=== PATIENT | female | born 1970 | race Caucasian/White ===

== ENCOUNTER 2019-05-22 15:30 | Emergency (ER) | payer SELFPAY ==
--- NOTE | 2019-05-22 15:59 | ER Document Report ---
HPI - HPI Patient complains to provider of: right breast abscess Time Seen by Provider: 05/22/19 15:48 Onset: Other - 4 days Quality of pain: Achy Context: 49-year-old female presents with complaints of right breast abscess. Reports she had a breast abscess approximately 1-1/2 years ago. She reports it was drained in [place]. She reports 4 days ago she started having some breast irritation tenderness. She reports her breast started turning red last night. She did soak the breast, put warm compresses on the breast and no relief of symptoms. She denies nipple drainage. No c/o fever, vomiting, diarrhea. She reports she does not have a primary care provider and does not have insurance. Past Medical History - General Information source: Patient - Social History Smoking Status: Current Every Day Smoker Cigarette use (# per day): Yes Frequency of alcohol use: None Drug Abuse: None Family History: None Patient has suicidal ideation: No Patient has homicidal ideation: No Pulmonary Medical History: Reports: Other - emphysema Past Surgical History: Reports: Other - right breast abscess drained Vertical Provider Document - CONSTITUTIONAL Agree With Documented VS: Yes Exam Limitations: No Limitations General Appearance: WD/WN, No Apparent Distress - HEENT HEENT: Atraumatic, Normocephalic - NECK Neck: Supple - RESPIRATORY Respiratory: No Respiratory Distress - CARDIOVASCULAR Cardiovascular: Regular Rate - MUSCULOSKELETAL/EXTREMETIES Musculoskeletal/Extremeties: MAEW, FROM - NEURO Level of Consciousness: Awake, Alert, Appropriate Motor/Sensory: No Motor Deficit - DERM Integumentary: Warm, Dry, Abscess Adult Front & Back Diagram: 1 - Patient complains of right breast pain. Reports it feels like an abscess that she had 11/2 years ago. No obvious abscess noted no erythema no swelling no pustule. No drainage Course - Re-evaluation Re-evalutation: 05/22/19 16:10 Patient presents to the emergency department with complaints of right breast abscess. I did evaluate the breast it does not look to have an obvious abscess. Ultrasound ordered - Vital Signs Vital signs: Temp Pulse Resp BP Pulse Ox 98.0 F 92 18 185/96 H 100 05/22/19 15:37 05/22/19 15:37 05/22/19 15:37 05/22/19 15:37 05/22/19 15:37 Discharge - Discharge Clinical Impression: breast irritation Condition: Stable Disposition: HOME, SELF-CARE Additional Instructions: *You have been evaluated for a right breast abscess *Monitor the site for signs of increasing infection such as increasing pain, redness, swelling, warmth *Wash the site twice daily as discussed *Follow up with a primary care provider in 3-5 days *Return to ED for signs of increasing infection, worsening condition, changes, needs
[2019-05-22] MEDS ORDERED: IBUPROFEN 800 MG TABLET PO ONE (16:00)
--- NOTE | 2019-05-22 16:38 | ER Document Report ---
ED Medical Screen (RME) - General Chief Complaint: Skin Problem Stated Complaint: BREAST PROBLEM Time Seen by Provider: 05/22/19 15:48 Mode of Arrival: Ambulatory Information source: Patient Notes: 49-year-old female presents with complaints of right breast abscess. Reports she had a breast abscess approximately 1-1/2 years ago. She reports it was drained in [place]. She reports 4 days ago she started having some breast irritation tenderness. She reports her breast started turning red last night. She did soak the breast, put warm compresses on the breast and no relief of symptoms. She denies nipple drainage. No c/o fever, vomiting, diarrhea. She reports she does not have a primary care provider and does not have insurance. - Related Data Allergies/Adverse Reactions: cariprazine [From Vraylar] Allergy (Verified 05/22/19 15:48) clonazepam [From Klonopin] Allergy (Verified 05/22/19 15:48) prednisone Allergy (Verified 05/22/19 15:48) sulfamethoxazole [From Bactrim] Allergy (Verified 05/22/19 15:48) trimethoprim [From Bactrim] Allergy (Verified 05/22/19 15:48) Past Medical History - General Information source: Patient - Social History Cigarette use (# per day): Yes Chew tobacco use (# tins/day): No Frequency of alcohol use: None Drug Abuse: None Lives with: Family - Family history: Malignancy - great great aunt with breast cancer Pulmonary Medical History: Reports: Other - emphysema Past Surgical History: Reports: Other - right breast abscess drained Review of Systems - Review of Systems Notes: Review HPI for review of systems., All other systems negative Physical Exam - Vital signs Vitals: Temp Pulse Resp BP Pulse Ox 98.0 F 92 18 185/96 H 100 05/22/19 15:37 05/22/19 15:37 05/22/19 15:37 05/22/19 15:37 05/22/19 15:37 - Notes Notes: PHYSICAL EXAMINATION: GENERAL: Well-appearing and in no acute distress HEAD: Atraumatic, normocephalic. EYES: extraocular movements intact, sclera anicteric, conjunctiva are normal. ENT: nares patent, Moist mucous membranes. NECK: Normal range of motion, supple LUNGS:RR even/unlabored HEART: Regular rate ABDOMEN: Soft, no tenderness. EXTREMITIES: Normal range of motion, NEUROLOGICAL: Cranial nerves grossly intact. PSYCH: Normal mood, normal affect. SKIN: Warm, Dry, normal turgor, no rashes or lesions noted Right breast ttp, no obvious breast abscess, no visual nipple discharge, no induration Course - Re-evaluation Re-evalutation: 05/22/19 17:15 Dr Elias from radiology contacted me. There is concern about inflammatory tissue versus abscess.. Patient reports her great great aunt had breast cancer. Patient herself has never had a mammogram. Patient was instructed on ultrasound report. Instructed on follow-up for mammogram tomorrow morning. It was scheduled through Noemi in radiology. Concerned about follow-up post mammogram. Patient does not have a primary care provider she does not have insurance. I have left a message with the culture nurse to monitor results and contact me. The patient was instructed to return to ER for worsening erythema swelling warmth pain. Breast Ultrasound 05/22/19 16:00 IMPRESSION: Inflammatory tissue without obvious abscess. Correlation with mammography is recommended. - Vital Signs Vital signs: Temp Pulse Resp BP Pulse Ox 98.0 F 80 18 145/70 H 98 05/22/19 17:19 05/22/19 17:19 05/22/19 17:19 05/22/19 17:19 05/22/19 17:19 - Diagnostic Test Radiology reviewed: Image reviewed, Reports reviewed Doctor's Discharge - Discharge Clinical Impression: breast irritation Condition: Stable Disposition: HOME, SELF-CARE Instructions: Mammography ([facility]), Oral Narcotic Medication ([facility]) Additional Instructions: *You have been evaluated for a right breast abscess *The Ultra [facility] noted a possible abscess or inflammatory response. You need further evaluation via mammogram *Monitor your breast for signs of increasing infection such as increasing pain, redness, swelling, warmth *warm compresses *Follow up with a primary care provider for referral to surgeon *Follow up for a mammogram tomorrow at [facility] at 0845 tomorrow morning. *Return to ED for signs of worsening infection, worsening condition, concerns, changes, needs Forms: Elevated Blood Pressure, Follow-Up Radiology Testing
--- NOTE | 2019-05-22 16:48 | RADIOLOGY REPORT (SQ) ---
EXAM DESCRIPTION: U/S BREAST UNILATERAL LIMITED COMPLETED DATE/TIME: 05/22/2019 4:31 pm REASON FOR STUDY: breast abscess COMPARISON: None TECHNIQUE: Static and Realtime grayscale interrogation of focal area(s) of concern in the right leo st(s) acquired. Selected color doppler/spectral images saved to PACS. LIMITATIONS: None. FINDINGS: There is a subareolar hypoechoic heterogeneous area measuring about 1.5 cm in maximum diam eter. There is flow in the periphery and no through transmission. IMPRESSION: Inflammatory tissue without obvious abscess. Correlation with mammography is recommend ed. BIRAD: 0 Incomplete: Need additional imaging evaluation and/or prior mammograms for comparison.. RECOMMENDATION: RECOMMENDED FOLLOW-UP: Follow-up as clinically indicated. COMMENT: The [employer] (ACR) has developed recommendations for screening MRI of the breasts in certain patient populations, to be used in conjunction with mammography. Breast MRI s urveillance may be appropriate for women with more than 20% lifetime risk of developing breast cancer as determined by genetic testing, significant family history of the disease, or history of mantle r adiation for Hodgkins Disease. ACR Practice Guidelines 2008. TECHNICAL DOCUMENTATION: FINDING NUMBER: (1) ASSESSMENT: (1) JOB ID: [id number] 2010 [employer]- All Rights Reserved Reading location - IP/workstation name: [email or web address]
[2019-05-22] MEDS ORDERED: HYDROCODONE/ACETAMINOPHEN 5-325 MG (6 TAB/ER DISP) PO PRN (17:05)
[2019-05-22 17:21] VITALS: BP 145/70
== END 2019-05-22 17:36 | disposition home or self-care (01) ==
LOC: ER 15:30
DX: N64.4 Mastodynia (principal); F17.210 Nicotine dependence, cigarettes, uncomplicated; Z88.3 Allergy status to other anti-infective agents; Z80.3 Family history of malignant neoplasm of breast
CPT/HCPCS: 76642; 99283

== ENCOUNTER 2019-05-23 12:09 | Emergency (ER) | payer SELFPAY ==
[2019-05-23] MEDS ORDERED: ONDANSETRON 4 MG TAB.RAPDIS PO ONE (12:20)
[2019-05-23] MEDS ORDERED: MORPHINE SULFATE 10 MG/ML INJ IM ONE (12:20)
--- NOTE | 2019-05-23 12:23 | ER Document Report ---
ED Medical Screen (RME) - General Stated Complaint: BREAST PAIN Time Seen by Provider: 05/23/19 12:17 Primary Care Provider: CARON VELEZ NP [Primary Care Provider] - Follow up as needed - HPI Notes: 05/23/19 12:21 49-year-old female presents emergency room with complaints of right breast pain that has "doubled in size" since being seen yesterday in the emergency room. Patient did receive an ultrasound as well as a diagnostic mammogram of her right breast which there is concern for DCI, she is pending a punch breast biopsy with a surgeon for further evaluation. Patient states that her pain is 9 out of 10, sharp and stabbing and swelling has become progressively worse in the last 24 hours. Denies any nipple drainage. Patient did not have any laboratory test done yesterday. Denies any fevers or chills I have greeted and performed a rapid initial assessment of this patient. A comprehensive ED assessment and evaluation of the patient, analysis of test results and completion of the medical decision making process will be conducted by additional ED providers. PHYSICAL EXAMINATION: GENERAL: Well-appearing, well-nourished and in mild distress CV: s1, s2 regular LUNGS: No respiratory distress SKIN: Warm, Dry, normal turgor, no rashes or lesions noted. right breast with erythema, warmth to touch and swelling at 12 o'clock to 3 o' clock. - Related Data Allergies/Adverse Reactions: cariprazine [From Vraylar] Allergy (Verified 05/22/19 15:48) clonazepam [From Klonopin] Allergy (Verified 05/22/19 15:48) prednisone Allergy (Verified 05/22/19 15:48) sulfamethoxazole [From Bactrim] Allergy (Verified 05/22/19 15:48) trimethoprim [From Bactrim] Allergy (Verified 05/22/19 15:48) Past Medical History - Social History Family history: Malignancy - great great aunt with breast cancer Past Surgical History: Reports: Other - right breast abscess drained Doctor's Discharge - Discharge Referrals: CARON VELEZ NP [Primary Care Provider] - Follow up as needed
[2019-05-23 13:15] LABS: ABSOLUTE LYMPHOCYTES (AUTO) 2.1 10^3/uL (0.5-4.7); ABSOLUTE NEUT (AUTO) 9.1 10^3/uL (1.7-8.2); BASOPHILS % (AUTO) 0.9 % (0-2); HEMATOCRIT 43.4 % (36.0-47.0); HEMOGLOBIN 14.4 g/dL (12.0-15.5); LYMPHOCYTES % (AUTO) 17.1 % (13-45); MEAN CORPUSCULAR HEMOGLOBIN 29.4 pg (27.0-33.4); MEAN CORPUSCULAR HGB CONC 33.1 g/dL (32.0-36.0); MEAN CORPUSCULAR VOLUME 89 fl (80-97); PLATELET COUNT 262 10^3/uL (150-450); RED BLOOD COUNT 4.89 10^6/uL (3.72-5.28); RED CELL DISTRIBUTION WIDTH 13.2 % (11.5-14.0); TOTAL CELLS COUNTED % (AUTO) 100 %; WHITE BLOOD COUNT 12.5 10^3/uL (4.0-10.5)
[2019-05-23 13:16] LABS: ABSOLUTE BASOPHILS # (AUTO) 0.1 10^3/uL (0.0-0.2); ABSOLUTE EOSINOPHILS # (AUTO) 0.1 10^3/uL (0.0-0.6)
[2019-05-23] MEDS ORDERED: CLINDAMYCIN HCL 150 MG CAPSULE PO ONE (13:20)
[2019-05-23] MEDS ORDERED: CEFTRIAXONE INJ 1000 MG VIAL IM ONE (13:20)
--- NOTE | 2019-05-23 13:20 | ER Document Report ---
ED General - General Chief Complaint: Breast Lump Stated Complaint: BREAST PAIN Time Seen by Provider: 05/23/19 12:17 Primary Care Provider: CARON VELEZ NP [Primary Care Provider] - Follow up as needed Notes: CHIEF COMPLAINT: Right breast pain and redness HPI: 49-year-old female presenting to the emergency department complaining of 4 days of right breast pain and swelling. No definitive fever. Patient states that she has had an abscess in this breast previously. Reports increasing pain. States she was seen in the emergency department yesterday, had an ultrasound that was negative for abscess, was scheduled for a mammogram this morning which she did have and states that she was told she would likely need to see a breast surgeon for biopsies, there was no fluid collection noted. Patient now presenti for reevaluation reporting increased swelling and pain. States she was not sent out on antibiotics yesterday ROS: See HPI - all other systems were reviewed and are otherwise negative Constitutional: no fever Eyes: no drainage, no blurred vision ENT: no runny nose, no sore throat Cardiovascular: no chest pain Resp: no SOB, no cough GI: no vomiting, no diarrhea, no abdominal pain : no dysuria Integumentary: Positive right breast pain Allergy: no hives Musculoskeletal: no extremity pain or swelling Neurological: no numbness/tingling, no weakness MEDICATIONS: I agree with the patient medications as charted by the RN. ALLERGIES: I agree with the allergies as charted by the RN. PAST MEDICAL HISTORY/PAST SURGICAL HISTORY: Reviewed and agree as charted by RN. SOCIAL HISTORY: Reviewed and agree as charted by RN. FAMILY HISTORY: No significant familial comorbid conditions directly related to patient complaint EXAM: With female electric repair supervisor present Reviewed vital signs as charted by RN. CONSTITUTIONAL: Alert and oriented and responds appropriately to questions. Well-appearing; well-nourished HEAD: Normocephalic; atraumatic EYES: Conjunctivae clear, sclerae non-icteric ENT: normal nose; no rhinorrhea; moist mucous membranes; pharynx without lesions noted NECK: Supple without meningismus; non-tender; no cervical lymphadenopathy, no masses CARD: RRR; no murmurs, no clicks, no rubs, no gallops; symmetric distal pulses RESP: Normal chest excursion without splinting or tachypnea; breath sounds clear and equal bilaterally; no wheezes, no rhonchi, no rales, pulse oximetry 98% on room air not hypoxic BREAST: Right breast was examined. There is some erythema to the upper aspect of the nipple and areola extending from 12:00 through 3:00. Slight induration no definitive fluctuance. There is moderate tenderness through this area. Indurated region measures approximately 2.5 cm x 1 cm ABD/GI: Normal bowel sounds; non-distended; soft, non-tender. BACK: The back appears normal and is non-tender to palpation, there is no CVA tenderness EXT: Normal ROM in all joints; non-tender to palpation; no cyanosis, no effusions, no edema SKIN: Normal color for age and race; warm; dry; good turgor NEURO: Moves all extremities equally; Motor and sensory function intact PSYCH: The patient's mood and manner are appropriate. Grooming and personal hygiene are appropriate. MDM: 49-year-old female with increasing right breast redness and tenderness. Patient had ultrasound yesterday which did not show fluid collection or abscess. Patient is afebrile. Patient had a mammogram today which showed thickening of the skin over the upper aspect of the nipple. This was concerning for Paget's disease or superficial cellulitis. Patient has had an abscess in the right breast previously. Symptoms have been ongoing for only 4 days. More likely this is a superficial cellulitis. I will treat patient with Rocephin and clindamycin in the emergency department keep patient on clindamycin. We have been in touch with the manager social work given the patient's insurance status to ensure the patient will have appropriate follow-up with surgery for biopsy if needed. Patient will take the antibiotics for the next 10 days, will return in 24 to 48 hours for recheck if breast redness or pain worsen. She is aware of the concern for cancers hence the close follow-up - Related Data Allergies/Adverse Reactions: cariprazine [From Vraylar] Allergy (Verified 05/22/19 15:48) clonazepam [From Klonopin] Allergy (Verified 05/22/19 15:48) prednisone Allergy (Verified 05/22/19 15:48) sulfamethoxazole [From Bactrim] Allergy (Verified 05/22/19 15:48) trimethoprim [From Bactrim] Allergy (Verified 05/22/19 15:48) Past Medical History - Social History Smoking Status: Unknown if Ever Smoked Family History: Reviewed & Not Pertinent Patient has suicidal ideation: No Patient has homicidal ideation: No Past Surgical History: Reports: Other - right breast abscess drained Course - Laboratory Result Diagrams: 05/23/19 12:50 05/23/19 12:50 Laboratory results interpreted by me: 05/23/19 12:50 WBC 12.5 H Absolute Neuts (auto) 9.1 H Discharge - Discharge Clinical Impression: Cellulitis of right breast Condition: Stable Disposition: HOME, SELF-CARE Additional Instructions: Continue warm compresses frequently to the right breast. Pain medications as prescribed no driving if taking narcotics for pain. Take the antibiotics as prescribed. Return in 24 to 48 hours if you have worsening redness or pain to the breast as discussed. Follow-up for further evaluation and possible biopsy to rule out cancer has also been recommended Prescriptions: Clindamycin HCl 300 mg PO QID #28 capsule Oxycodone HCl/Acetaminophen [Percocet 5-325 mg Tablet] 1 tab PO Q4H PRN #15 tab PRN Reason: Referrals: TERRY DIETRICH MD [ACTIVE STAFF] - Follow up as needed NATALY CORTEZ RN [REGISTERED NURSE-CASE MANGER] - Follow up as needed
[2019-05-23 13:28] LABS: BLOOD UREA NITROGEN 8 mg/dL (7-20); CALCIUM 9.9 mg/dL (8.4-10.2); CARBON DIOXIDE 25 mmol/L (22-30); CHLORIDE 103 mmol/L (98-107); GLUCOSE 154 mg/dL (75-110); POTASSIUM 4.1 mmol/L (3.6-5.0)
[2019-05-23 13:29] LABS: ALBUMIN 4.7 g/dL (3.5-5.0); ALKALINE PHOSPHATASE 89 U/L (38-126); ANION GAP 12 (5-19); ASPARTATE AMINO TRANSFERASE 20 U/L (14-36); BILIRUBIN,DIRECT 0.3 mg/dL (0.0-0.4); BILIRUBIN,TOTAL 0.3 mg/dL (0.2-1.3); TOTAL PROTEIN 7.7 g/dL (6.3-8.2)
[2019-05-23] MEDS: RINGERS SOLUTION,LACTATED 1,000 ML IV PRN ×2 (13:53→14:36)
[2019-05-23 16:21] VITALS: BP 158/108
== END 2019-05-23 16:30 | disposition home or self-care (01) ==
LOC: ER 12:09
DX: N61.0 Mastitis without abscess (principal); R74.0 Nonspecific elevation of levels of transaminase and lactic acid dehydrogenase [LDH]; I10 Essential (primary) hypertension; Z88.8 Allergy status to other drugs, medicaments and biological substances; Z88.1 Allergy status to other antibiotic agents
CPT/HCPCS: 99283; 96372; 96360; 96361; 36415; 87040; 83605; 85025; 80053; S0119; J2270; J0696; J7120

== ENCOUNTER → 2019-05-23 | Outpatient (CLI) | payer SELFPAY ==
--- NOTE | 2019-05-23 09:38 | ER Document Report ---
Doctor's Note Notes: 05/23/19 09:33 Dr. Mike, radiologist, made me aware that she needs right breast punch biopsy for concern of DCI and needs follow up with Dr. Tessy Erickson or Dr. Shell, surgeon. Carolyn Garcia RN, made aware that needs close follow up. Discussed this at 0936, pt will be notified to schedule.
--- NOTE | 2019-05-23 09:42 | WOMENS IMAGING REPORT ---
EXAM DESCRIPTION: BILAT DIAGNOSTIC MAMMO W/CAD IMAGES COMPLETED DATE/TIME: 05/23/2019 9:13 am REASON FOR STUDY: BREAST PAIN N63.10 UNSPECIFIED LUMP IN THE RIGHT BREAST, UNSPECIFIED CURRY COMPARISON: Breast ultrasound 05/22/2019 EXAM PARAMETERS: Standard craniocaudal and mediolateral oblique views of each breast recorded using digital acquisition. Additional right breast 90 mediolateral view Read with the assistance of CAD: .[facility] - [employer] Licensed Occupational Therapist Version 9.2 LIMITATIONS: None. FINDINGS: RIGHT BREAST MASSES: No suspicious masses. CALCIFICATIONS: No new or suspicious calcifications. ARCHITECTURAL DISTORTION: None. ASYMMETRY: None noted. OTHER: There is diffuse right periareolar and areolar skin thickening. This could be seen in Paget's disease of the nipple or with superficial cellulitis. Consultation with a breast surgeon is recomme nded. This finding was discussed with Deepti Winters in the emergency room. LEFT BREAST MASSES: No suspicious masses. CALCIFICATIONS: No new or suspicious calcifications. ARCHITECTURAL DISTORTION: None. ASYMMETRY: None noted. OTHER: No other significant finding. IMPRESSION: Abnormal right breast periareolar and areolar skin thickening. Paget's disease the nipp le may be present. Skin punch biopsy is recommended with breast surgery consult BREAST DENSITY: b. There are scattered areas of fibroglandular density. BIRAD: ASSESSMENT: 4 Suspicious. Biopsy should be performed in the absence of clinical contra-indic ation. RECOMMENDATION: RECOMMENDED FOLLOW UP: Birads 4: Biopsy should be performed in the absence of clinic al contraindication. SPECIFIC INTERVENTION/IMAGING/CONSULTATION RECOMMENDED:Skin punch biopsy and breast surgery cpnsult COMMUNICATION:These results were discussed with Deepti Winters in the emergency room who will arrange follow-up COMMENT: The patient has been notified of the results by letter per SA requirements. Additional no tification policies are in place for contacting patient with suspicious or incomplete findings. Quality ID #225: The [employer] recommends an annual screening mammogram for women aged 40 years or over. This facility utilizes a reminder system to ensure that all patients receive reminder letters, and/or direct phone calls for appointments. This includes reminders for routine scr eening mammograms, diagnostic mammograms, or other Breast Imaging Interventions when appropriate. Th is patient will be placed in the appropriate reminder system. TECHNICAL DOCUMENTATION: FINDING NUMBER: (1) ASSESSMENT: (1) JOB ID: [id number] 2010 [employer]- All Rights Reserved Reading location - IP/workstation name: [id number]
== END ==
LOC: WI 08:45
PROVIDERS: ATTEND Nurse Practitioner Family
DX: N64.89 Other specified disorders of breast (principal)
CPT/HCPCS: 77066

== ENCOUNTER → 2020-03-17 | Outpatient (CLI) | payer MEDICAID ==
--- NOTE | 2020-03-17 11:25 | ER RDC ASSESSMENT REPORT ---
Intake - In the Last 14 days Have you traveled outside [place]?: No Have you been in close contact with someone CONFIRMED: No Worked in Healthcare?: No - Symptoms Subjective Fever([place] feverish): Yes Chills: No Muscule Aches: No Runny Nose: Yes Sore Throat: Yes Cough (New or worsening chronic cough): No Shortness of breath: No Nausea or Vomiting: No Headache: No Abdominal Pain: No Diarrhea(3 or more loose stools in last 24 hours): No - Do you have any of the following Chronic lung disease: Asthma or emphysema or COPD: Yes Cystic Fibrosis: No Diabetes: No High Blood Pressure: No Cardiovascular Disease: No Chronic Kidney Disease: No Chronic Liver Disease: No Chronic blood disorder like Sickle Cell Disease: No Weak immune system due to disease or medication: No Neurologic condition that limits movement: No Developmental delay - Moderate to Severe: No Recent (within past 2 weeks) or current : No Morbid Obesity (>100 pounds over ideal weight): No - Objective Temperature: 98.7 F Pulse Rate: 75 Respiratory Rate: 17 Blood Pressure: 128/77 O2 Sat by Pulse Oximetry: 99 Objective: Given above, testing performed: flu, strep, covid General - General Stated Complaint: sore throat Time Seen by Provider: 03/17/20 12:00 Mode of Arrival: Ambulatory Information source: Patient - HPI Notes: 49-year-old female presents to [facility] clinic for COVID-19 testing. Patient reports no known contact with Covid positive individual. Symptom onset 03/12/2020. Xochitl ent is reporting subjective fever (she does not have thermometer), runny nose, sore throat. Denies any chills, muscle aches, change in taste or smell, cough or shortness of breath, headache, or GI upset. - Related Data Allergies/Adverse Reactions: cariprazine [From Vraylar] Allergy (Verified 05/22/19 15:48) clonazepam [From Klonopin] Allergy (Verified 05/22/19 15:48) prednisone Allergy (Verified 05/22/19 15:48) sulfamethoxazole [From Bactrim] Allergy (Verified 05/22/19 15:48) trimethoprim [From Bactrim] Allergy (Verified 05/22/19 15:48) Past Medical History - General Information source: Patient - Social History Smoking Status: Current Every Day Smoker Cigarette use (# per day): Yes - 20-30 Family History: Reviewed & Not Pertinent - Past Medical History Cardiac Medical History: Reports: None Pulmonary Medical History: Reports: Hx COPD EENT Medical History: Reports: None Neurological Medical History: Reports: None Endocrine Medical History: Reports: None Renal/ Medical History: Reports: None Malignancy Medical History: Reports: None GI Medical History: Reports: None Musculoskeletal Medical History: Reports None Skin Medical History: Reports None Psychiatric Medical History: Reports: None Traumatic Medical History: Reports: None Infectious Medical History: Reports: None Past Surgical History: Reports: Hx Adenoidectomy, Hx Breast Surgery, Hx Tonsillectomy, Hx Tubal Ligation, Other - right breast abscess drained Physical Exam - General General appearance: Appears well, Alert In distress: None Notes: PHYSICAL EXAMINATION: GENERAL: Well-appearing and in no acute distress. HEAD: Atraumatic, normocephalic. EYES: sclera anicteric, conjunctiva are normal. ENT: nares patent. Moist mucous membranes. NECK: Normal range of motion, supple without lymphadenopathy. LUNGS: No increased work of breathing. Lung sounds CTAB and equal. No wheezes rales or rhonchi. HEART: Regular rate and rhythm without murmurs. ABDOMEN: Soft, nontender, normal bowel sounds, no guarding. EXTREMITIES: Normal range of motion, no pitting edema. No cyanosis. NEUROLOGICAL: A&O x 3. Normal speech. PSYCH: Normal mood, normal affect. SKIN: Warm, Dry, normal turgor, no rashes or lesions noted Patient Education/Counseling Counseling/Education: Patient presents with symptoms associated with possible Covid 19 infection. Patient does not have emergency worrying symptoms such as difficulty breathing, shortness of breath, chest pain, pressure, confusion or cyanosis. Patient appears suitable for discharge as vital signs are stable and patient is nontoxic in appearance. Good return precautions have been discussed with patient, patient verbalized understanding and is agreeable with discharge plan of care at this time. Guidance for worsening S/SX: As a person under investigation for Covid 19, the [facility], division of public health advises you to adhere to the following guidance until your test results are reported to you. If your test result is positive, you will receive additional information from your provider and your local health department at that time. Remain at home until you are cleared by the health provider or public health authorities. Keep a log of visitors to your home, notify any visitors to your home of your isolation status. If you plan to move to a new address or leave the county, notify the local health department in your County. Call your doctor or seek care if you have an urgent medical need. Before seeking medical care, call ahead to get instructions from the provider before arriving at the medical office clinic or hospital. Notify them that you are being tested for the virus that causes Covid 19 so that arrangements can be made, as necessary, to prevent transmission to others in the healthcare setting. Next, notify the local health department in your county. If a medical emergency arises and you need to call 911, inform the first responders that you are being tested for the virus that causes Covid 19. Next, notify the local health department in your county. RDC Discharge - Discharge Clinical Impression: Encounter for screening laboratory testing for COVID-19 virus Upper respiratory infection Qualifiers: URI type: unspecified URI Qualified Code(s): J06.9 - Acute upper respiratory infection, unspecified Condition: Good Disposition: Home; Selfcare
[2020-03-17 12:43] VITALS: BP 128/77
[2020-03-17 14:07] LABS: A TYPE INFLUENZA AG NEGATIVE (NEGATIVE); B INFLUENZA AG NEGATIVE (NEGATIVE)
== END ==
LOC: RDC 10:54
PROVIDERS: ATTEND Registered Nurse
DX: Z20.822 Contact with and (suspected) exposure to COVID-19 (principal); J06.9 Acute upper respiratory infection, unspecified; R50.9 Fever, unspecified; R09.89 Other specified symptoms and signs involving the circulatory and respiratory systems; J02.9 Acute pharyngitis, unspecified; F17.210 Nicotine dependence, cigarettes, uncomplicated
CPT/HCPCS: 87070; 87880; 87635; 87804; 99202; 99211; C9803